=== PATIENT | male | born 1960 | race Caucasian/White ===

== ENCOUNTER 2022-07-07 18:48 | Emergency (ER) | payer BC ==
[~2022-07-07] VITALS: Ht 177.8 cm; Wt 86.4 kg
[2022-07-07 18:48] VITALS: TEMP 98.1
[2022-07-07 20:44] VITALS: BP 103/63; PULSE 71
== END 2022-07-07 20:47 | disposition home or self-care (01) ==
LOC: COL.ER 18:48
DX: S09.90XA Unspecified injury of head, initial encounter (principal); S01.01XA Laceration without foreign body of scalp, initial encounter; S01.112A Laceration without foreign body of left eyelid and periocular area, initial encounter; R40.2412 Glasgow coma scale score 13-15, at arrival to emergency department; F10.229 Alcohol dependence with intoxication, unspecified; Y90.7 Blood alcohol level of 200-239 mg/100 ml; Z23 Encounter for immunization; Z28.310 Unvaccinated for COVID-19; V49.40XA Driver injured in collision with unspecified motor vehicles in traffic accident, initial encounter; Y92.410 Unspecified street and highway as the place of occurrence of the external cause